=== PATIENT | female | born 1990 | race Caucasian/White ===

== ENCOUNTER 2018-06-07 08:26 | Day surgery (SDC) | payer OTHER ==
[2018-05-30 11:26] VITALS: BMI 41.3
[2018-06-07] MEDS ORDERED: BUPIVACAINE HCL/PF 0.5% (5MG/ML) 10 ML VIAL ONE (10:17)
[2018-06-07] MEDS ORDERED: MORPHINE SULFATE 10 MG/1 ML *VIAL ONE (10:19)
[2018-06-07] MEDS ORDERED: oxyCODONE HCL 5 MG TABLET PO PRN ×2 (10:22)
[2018-06-07] MEDS ORDERED: PROMETHAZINE HCL 25 MG/1 ML VIAL IVPUSH PRN (10:22)
[2018-06-07] MEDS ORDERED: ONDANSETRON 4 MG/2 ML VIAL IVPUSH PRN (10:22)
[2018-06-07] MEDS ORDERED: MIDAZOLAM HCL 2 MG/2 ML SINGLE DOSE VIAL ONE (10:35)
[2018-06-07] MEDS ORDERED: PROPOFOL 20 ML ONE (10:35)
[2018-06-07] MEDS ORDERED: ceFAZolin SODIUM 1 GM VIAL ONE ×2 (10:49→10:50)
[2018-06-07] MEDS ORDERED: KETOROLAC TROMETHAMINE 30 MG/1 ML VIAL ONE (10:49)
[2018-06-07] MEDS ORDERED: ONDANSETRON 4 MG/2 ML VIAL ONE ×2 (10:49→12:07)
[2018-06-07] MEDS ORDERED: DEXAMETHASONE SOD PHOSPHATE 4 MG/1 ML VIAL ONE (10:49)
[2018-06-07] MEDS ORDERED: LIDOCAINE HCL/PF 2% SDV 5ML VIAL ONE (10:49)
--- NOTE | 2018-06-07 11:48 | OP ---
DATE OF OPERATION: 06/07/2018 PREOPERATIVE DIAGNOSIS: Torn medial meniscus to the left knee. POSTOPERATIVE DIAGNOSIS: Torn medial and lateral meniscus, left knee, with chondromalacia, hypertrophic synovium, and joint debris. PROCEDURE PERFORMED: Operative arthroscopy, left knee, with partial medial and lateral meniscectomies, chondroplasty, synovectomy, and joint debridement. SURGEON: Terry Alejo MD GRADUATE NURSE: Aguila Guzman ANESTHESIOLOGIST: Diego Wasserman MD ANESTHESIA: General anesthesia. PROCEDURE: Consisted of the patient being brought into the operating room and gently transferred from the stretcher to the OR table with all bony prominences well padded. The patient was given intravenous antibiotics and copious irrigation to minimize the risk for infection. A complete [id number] discussion was conducted with the patient, which was inclusive of, but not limited to, infection, bleeding, , paralysis, increased pain, and need for repeat surgery. The patient asked questions and understood the procedure. Following sterile prepping and draping of the left leg, an appropriate time-out was conducted indicating the type of surgery, site of surgery, anesthesiologist, and surgeon. Following sterile preparation and draping and appropriate time-out, the leg was exsanguinated using appropriate Esmarch bandage, and the tourniquet inflated to 350 mmHg. Suprapatellar and medial and lateral joint line portals were used to introduce the arthroscope and arthroscopic instruments. The knee was examined. There was noted to be hypertrophic synovium in the suprapatellar pouch, and partial synovectomy was performed. Medial and lateral gutters without plica or loose body. Medial inferior surface of the patella had damage consistent with chondromalacia. This was smoothed using a shaver and radiofrequency wand. Medial meniscus was evaluated and found to have a tear at the posterior horn, and this was dissected using a shaver and radiofrequency wand. Intercondylar region was noted to have joint debris, and a joint debridement was performed. Cruciate ligaments were found to be intact. Lateral meniscus was found to have a tear of the posterior horn, and this was resected using shaver and radiofrequency wand. The knee was then copiously irrigated with sterile saline irrigant. Wounds were closed with 4-0 undyed Vicryl followed by Steri-Strips, Xeroform, 4x4s, followed by a sterile Webril and Hugh bandage and knee immobilizer. The tourniquet was deflated after approximately 20 minutes of tourniquet time. There were no intraoperative complications. TERRY ALEJO M.D. [id number]
[2018-06-07] MEDS ORDERED: PROMETHAZINE HCL 25 MG/1 ML VIAL ONE (12:42)
[2018-06-07] MEDS ORDERED: PROMETHAZINE HCL 25 MG/1 ML VIAL IVPUSH ONE (12:45)
[2018-06-07 14:06] VITALS: BP 128/78; PULSE 78; TEMP 98.5
== END 2018-06-07 13:45 | disposition home or self-care (01) ==
LOC: FASU 08:26
PROVIDERS: ATTEND Orthopaedic Surgery
PROC: 0SBD4ZZ Excision of Left Knee Joint, Percutaneous Endoscopic Approach (ICD-10-PCS; 2018-06-07)
PROC: 0SBD4ZZ Excision of Left Knee Joint, Percutaneous Endoscopic Approach (ICD-10-PCS; 2018-06-07)
PROC: 0SBD4ZZ Excision of Left Knee Joint, Percutaneous Endoscopic Approach (ICD-10-PCS; principal; 2018-06-07 11:06)
DX: S83.242A Other tear of medial meniscus, current injury, left knee, initial encounter (principal); S83.282A Other tear of lateral meniscus, current injury, left knee, initial encounter; M22.42 Chondromalacia patellae, left knee; M67.262 Synovial hypertrophy, not elsewhere classified, left lower leg; M25.862 Other specified joint disorders, left knee; X58.XXXA Exposure to other specified factors, initial encounter; Y93.9 Activity, unspecified; Y92.9 Unspecified place or not applicable
CPT/HCPCS: 84703; 94760

== ENCOUNTER 2019-04-17 03:01 | Emergency (ER) | payer OTHER ==
[2019-04-17 03:05] VITALS: TEMP 97.7; BMI 41.3
--- NOTE | 2019-04-17 03:41 | PDOC ---
Attending Attestation - Resident Resident Name: Power Mendozaelle - ED Attending Attestation I have performed the following: I have examined & evaluated the patient, The case was reviewed & discussed with the resident, I agree w/resident's findings & plan, Exceptions are as noted - HPI HPI: 04/17/19 03:37 28 yo F with ho c/o chest pain. started coughing today. no f/c no n/v describes as a sharp pain. not pluertic. no h/o pe or dvt. no calf pain or leg pain. no recent travel. cough nonproductive. started last pm. no radiation. no mod factors. took motrin yesterday for her pain no relief. no family h/o of cad. pt does not smoke. - Physicial Exam PE: 04/17/19 03:39 awake alert lungs clear bilat mild chest wall ttp. heart rrr no mrg abd soft nt nd ext wwp. no ext. no edema. no calf tenderness. skin warm and dry. - Medical Decision Making 04/17/19 03:40 28 yo F with h/o obesity here with c/o chest pain. mild reproducible ttp on chest wall. differential angina unlikley . pe, pneumonia costochondritis. gerd. plan cxr ekg trop . reassess. d dimer r/o pe. Heart Score/ECG Review #1 General ECG Interpretation: Sinus Rhythm, Normal Rate (83), Normal Intervals, No acute ischemic changes
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
[2019-04-17 07:07] LABS: ALBUMIN 3.6 g/dl (3.4-5.0); BILIRUBIN,TOTAL 0.3 mg/dL (0.2-1); CALCIUM 8.8 mg/dL (8.5-10.1); CREATININE 0.7 mg/dL (0.55-1.3); POTASSIUM 3.7 mmol/L (3.5-5.1); TOT PROT 7.9 g/dl (6.4-8.2)
[2019-04-17 07:25] LABS: HEMATOCRIT 34.6 % (32.4-45.2); HEMOGLOBIN 11.7 GM/dL (10.7-15.3); MCH 27.7 pg (25.7-33.7); MCHC 33.7 g/dl (32.0-36.0); MEAN CELL VOLUME 82.2 fl (80-96); MEAN PLT VOLUME 8.2 fl (7.5-11.1); PLATELET COUNT 318 K/MM3 (134-434); RBC 4.21 M/mm3 (3.60-5.2); RDW 13.8 % (11.6-15.6); WHITE BLOOD COUNT 8.9 K/mm3 (4.0-10.0)
--- NOTE | 2019-04-17 07:25 | PDOC ---
*Physical Exam - Vital Signs Last Vital Signs Temp Pulse Resp BP Pulse Ox 97.7 F 105 H 18 129/63 99 04/17/19 03:02 04/17/19 03:02 04/17/19 03:02 04/17/19 03:02 04/17/19 03:02 ED Treatment Course - LABORATORY CBC & Chemistry Diagram: 04/17/19 03:33 04/17/19 03:54 Medical Decision Making - Medical Decision Making 04/17/19 07:00 Pt received on sign out from Dr. Mendoza. 28 y/o female presenting with chest pain that started yesterday morning. CXR pending. 04/17/19 08:40 CXR negative. Pt reassessed. D/w the pt the risks and benefits of staying for a 2nd troponin level vs leaving and f/u with cardiology. Pt's pain has been going on since 8:15am yesterday morning. Pt would like to leave. Plan to d/c home with PCP and cards f/u. All questions answered. Return precautions given. Pt verbalized understanding and agreement with plan. Discharge - Discharge Information Problems reviewed: Yes Clinical Impression/Diagnosis: Chest pain Condition: Stable Disposition: HOME - Admission No - Follow up/Referral Referrals: Aguila Manning MD [Staff Physician] - Jordi Padgett MD [Primary Care Provider] - - Patient Discharge Instructions Patient Printed Discharge Instructions: DI for Chest Pain Additional Instructions: Please make a follow up appointment with your primary care doctor (Dr. Padgett) and a ore trimmer (Dr. Manning). If you experience any new, worsening, or concerning symptoms, including severe chest pain or difficulty breathing, please return to the emergency department. - Post Discharge Activity
[2019-04-17 07:26] LABS: BASO % 0.4 % (0-2.0); EOS % 0.6 % (0-4.5); NEUT % 54.9 % (42.8-82.8)
[2019-04-17 07:33] LABS: ACTIVATED PTT 32.9 SECONDS (25.2-36.5); INR 1.07 (0.83-1.09); PROTHROMBIN TIME (PATIENT) 12.6 SEC (9.7-13.0)
[2019-04-17 08:15] VITALS: BP 118/72; PULSE 70
--- NOTE | 2019-04-17 16:04 | EKG ---
Test Reason : Blood Pressure : / mmHG Vent. Rate : 083 BPM Atrial Rate : 083 BPM P-R Int : 134 ms QRS Dur : 092 ms QT Int : 404 ms P-R-T Axes : 033 026 048 degrees QTc Int : 474 ms NORMAL SINUS RHYTHM NORMAL ECG NO PREVIOUS ECGS AVAILABLE Confirmed by AMADOR LAY MD ([id number]) on 04/17/2019 4:04:00 PM Referred By: Confirmed By:AMADOR LAY MD
== END 2019-04-17 08:47 | disposition home or self-care (01) ==
LOC: JER 03:01
DX: R07.89 Other chest pain (principal); E66.01 Morbid (severe) obesity due to excess calories; Z68.41 Body mass index [BMI] 40.0-44.9, adult
CPT/HCPCS: 36415; 71046-TC-FY; 80053; 84484; 85025; 85379; 85610; 85730; 93005; 93010; 99285-25